=== PATIENT | male | born 1960 | race Caucasian/White ===

== ENCOUNTER 2017-01-04 12:42 | Inpatient (IN) | payer BC ==
--- NOTE | ~2017-01-04 | OP ---
Record Of Operation [facility] [address] [place]. [address] NAME: RODY DAVIS : 62 STATUS : DIS IN PAT#: [id number] AGE: 56 ADM/REG DATE : 01/04/17 MR#: [id number] REPORT SERV DATE: 01/07/17 DICTATED BY: ZHANG ALAS III DATE: 01/04/17 REPORT STATUS : Draft TRANSCRIBED BY: MODL DATE: 01/04/17 DATE OF PROCEDURE: 01/04/2017 PROCEDURE: Cystoscopy, bilateral retrograde, left double-J stent placement. PREOPERATIVE DIAGNOSES: Urinary tract infection, fever, and left ureteral calculus. POSTOPERATIVE DIAGNOSES: Urinary tract infection, fever, and left ureteral calculus. ANESTHESIA: General. SURGEON: Zhang Alas M.D. DESCRIPTION OF PROCEDURE: Following induction of adequate general anesthesia, the patient was placed in dorsal lithotomy position and prepped and draped in a sterile fashion. The urethra was examined and noted to be normal. The prostate was minimally obstructed. The bladder was entered. There were no tumors or stones. Left retrograde showed hydronephrosis approximately 4 to 5 cm from the bladder. There was a filling defect at that level. A wire was placed around it into the renal pelvis. A Vilas was placed up to the renal pelvis. It was opacified and the urine was obtained. It was dark yellow, not purulent. This was sent for culture, labeled left kidney urine culture. A 6-South African 26-cm Percuflex stent was placed with a loop in the upper pole and a loop in the bladder. On the right side, I saw no stones in the ureter. The system was opacified, was not obstructed, and urine was collected on this side for culture and labeled urine from right kidney. No catheter was placed. The patient tolerated the procedure well. OB/MODL Zhang Alas III, M.D. / [id number] CC: Giulia Stallworth III, M.D.
--- NOTE | ~2017-01-04 | DS ---
Discharge Summary [facility] [address] [place]. [address] NAME: RODY DAVIS : 62 STATUS : DIS IN PAT#: [id number] AGE: 56 ADM/REG DATE : 01/04/17 MR#: [id number] REPORT SERV DATE: 01/07/17 DICTATED BY: ZHANG ALAS III DATE: 01/06/17 REPORT STATUS : Draft TRANSCRIBED BY: JUAN CARLOS DATE: 01/06/17 ADMISSION DATE: 01/04/2017 DISCHARGE DATE: 01/06/2017 DISCHARGE DIAGNOSIS: Urinary tract infection with left ureteral calculus with probable pyelonephritis. PROCEDURE: Cystoscopy, retrograde left double-J stent. BRIEF HISTORY: The patient is a 56-year-old who has a long history of stones, multiple extractions, ESWL, and more recently had a right percutaneous procedure. He has a scarred right kidney from a fungal infection last year. Still has a 1.2 mm stone in the lower pole and a smaller stone above it. He had been having recurrent Pseudomonas infections that were sensitive to Cipro, but recurred rapidly. They were asymptomatic. I suspected that they may have originated in the right kidney. A renal nuclear scan showed 27% on the right side, 73 on the left with no obstruction. He began having left-sided flank pain and a CT was done showing a stone in the distal left ureter. He had had a fever of 102 on the day before admission. He was seen in the office and brought to [facility] for stenting. White count was 18,000. Creatinine was up slightly: Blood sugar was 130. He was hemodynamically stable. Past medical history can be found in the history and physical which is handwritten in the nursing notes. HOSPITAL COURSE: The patient was taken to the operating room and a left stent was placed. The urine was dark, but did not look purulent. His retrograde showed significant hydronephrosis. A stent was placed. Urine was sent for culture from the kidney. Right retrograde was done showing no hydronephrosis. Urine was sent for culture from that side as well. The urine culture was growing gram-negative rods, presumably Pseudomonas on the day of discharge. He had been afebrile for 36 hours. White count came down to 9000. He was eating and drinking, had no complaints whatsoever. I explained to him that I could let him go home, but I am going to give him gentamicin to cover him for 24 hours. We should hopefully have the cultures back tomorrow. I suspect Cipro did not clear the infection since there was obviously some infection, obviously some obstruction in the left kidney. It is somewhat surprising that a nuclear scan with Lasix was done that showed no hydronephrosis despite the fact the patient was having pain and likely had the ureteral stone at that time. The other issue with this is the fact that the Pseudomonas may have been in the left kidney alone and might not have originated from the right kidney. We had planned to do a second percutaneous procedure with the thinking that the right kidney probably held the residual infection. He will go home and will call the office. We will get the culture back and I may give him 1 more trial of Cipro or more likely place a PICC line and start him on a 5- to 7-day course of IV antibiotics. OB/MODL Zhang Discharge Summary [address] [place]. [address] NAME: RODY DAVIS : 62 STATUS : DIS IN PAT#: [id number] AGE: 56 ADM/REG DATE : 01/04/17 MR#: [id number] REPORT SERV DATE: 01/07/17 DICTATED BY: ZHANG ALAS III DATE: 01/06/17 REPORT STATUS : Draft TRANSCRIBED BY: JUAN CARLOS DATE: 01/06/17 Jin BERMAN M.D. / [id number] CC: Giulia Stallworth III, M.D.
[~2017-01-04 12:42] MED LIST: ASAB PO; CIP5 PO; DITRO5 PO; FLOMAX4 PO; FLUCON2 PO; HYDROCHLOROT12.5 MG PO; LEVEMFLXPN SC; NORCO1 TA2 PO; NORCO1 TAB PO; NOVOPEN SC; PCET PO; PERCOCET1 TA2 PO; PR25 PO; T PO; UROGESIC BLUE PO
[2017-01-04 13:47] LABS: BASOPHILS 0.3 %; BASOPHILS ABSOLUTE 0.05 10/3/uL (0.0-0.16); EOSINOPHILS 0.1 %; EOSINOPHILS ABSOLUTE 0.01 10/3/uL (0.0-0.53); HEMATOCRIT 47.5 % (40.0-51.0); HEMOGLOBIN 16.3 g/dL (13.6-17.8); IMMATURE GRANULOCYTES 0.4 %; IMMATURE GRANULOCYTES ABSOLUTE 0.07 10/3/uL (0.0-0.11); LYMPHOCYTES 5.5 %; MEAN CORPUS HGB CONC 34.3 g/dL (32.0-36.0); MEAN CORPUSCULAR HEMOGLOB 33.7 pg (26.0-34.0); MEAN CORPUSCULAR VOLUME 98.3 fL (80-100); MEAN PLATELET VOLUME 10.8 fL (9.2-13.0); MONOCYTES 5.5 %; NEUTROPHILS 88.2 %; PLATELET COUNT 198 10/3/uL (150-400); RBC DISTRIBUTION WIDTH 13.4 % (12.0-16.0); RED CELL COUNT 4.83 10/6/uL (4.7-6.1)
[2017-01-04 13:48] LABS: MANUAL DIFF NO %; WHITE BLOOD CELLS 16.2 10/3/uL (4.5-10.5)
[2017-01-04 14:02] LABS: A/G RATIO 0.8 (0.7-1.9); ALBUMIN 3.7 G/DL (3.5-5.0); ALKALINE PHOSPHATASE 85 U/L (45-117); BUN (BLOOD UREA NITROGEN) 18 MG/DL (6-23); CALCIUM, SERUM 9.1 MG/DL (8.5-10.4); CHLORIDE, SERUM 102 MMOL/L (96-112); CO2 (CARBON DIOXIDE) 25 MMOL/L (24-34); CREATININE 0.99 MG/DL (0.70-1.30); GFR AFRICAN AMERICAN 99 ML/MIN (>=60); GFR NON AFRICAN AMERICAN 85 ML/MIN (>=60); GLOBULIN 4.7 G/DL (2.5-4.1); GLUCOSE, SERUM 107 MG/DL (60-99); SGOT(AST) 10 U/L (5-40); SGPT(ALT) 18 U/L (5-65); SODIUM, SERUM 138 MMOL/L (135-148); TOTAL BILIRUBIN 1.4 MG/DL (0-1.2); TOTAL PROTEIN 8.4 G/DL (6.0-8.5)
[2017-01-05 07:22] LABS: BASOPHILS 0.3 %; BASOPHILS ABSOLUTE 0.03 10/3/uL (0.0-0.16); EOSINOPHILS 0.6 %; EOSINOPHILS ABSOLUTE 0.05 10/3/uL (0.0-0.53); HEMATOCRIT 43.5 % (40.0-51.0); HEMOGLOBIN 14.4 g/dL (13.6-17.8); IMMATURE GRANULOCYTES 0.4 %; IMMATURE GRANULOCYTES ABSOLUTE 0.04 10/3/uL (0.0-0.11); LYMPHOCYTES 12.7 %; LYMPHOCYTES ABSOLUTE 1.15 10/3/uL (0.67-4.30); MEAN CORPUS HGB CONC 33.1 g/dL (32.0-36.0); MEAN CORPUSCULAR VOLUME 99.5 fL (80-100); MEAN PLATELET VOLUME 10.9 fL (9.2-13.0); MONOCYTES 10.6 %; MONOCYTES ABSOLUTE 0.96 10/3/uL (0.21-1.20); NEUTROPHILS 75.4 %; NEUTROPHILS ABSOLUTE 6.79 10/3/uL (2.02-8.40); PLATELET COUNT 170 10/3/uL (150-400); RBC DISTRIBUTION WIDTH 13.5 % (12.0-16.0); RED CELL COUNT 4.37 10/6/uL (4.7-6.1)
[2017-01-05 07:25] LABS: MANUAL DIFF NO %
[2017-01-05 07:28] LABS: BUN (BLOOD UREA NITROGEN) 20 MG/DL (6-23); CALCIUM, SERUM 8.3 MG/DL (8.5-10.4); CHLORIDE, SERUM 102 MMOL/L (96-112); CO2 (CARBON DIOXIDE) 28 MMOL/L (24-34); CREATININE 1.05 MG/DL (0.70-1.30); GFR AFRICAN AMERICAN 92 ML/MIN (>=60); GFR NON AFRICAN AMERICAN 80 ML/MIN (>=60); POTASSIUM, SERUM 3.9 MMOL/L (3.5-5.3); SODIUM, SERUM 139 MMOL/L (135-148)
[2017-01-05 07:29] LABS: GLUCOSE, SERUM 130 MG/DL (60-99)
[2017-01-06] MEDS ORDERED: PR25 PO (14:42)
[2017-04-19] MEDS ORDERED: MEDROLPAK4 PO (14:29)
[2017-04-19] MEDS ORDERED: CIP5 PO (14:31)
[2017-06-24] MEDS ORDERED: MOBIC15 MG PO (17:16)
[2017-06-27] MEDS ORDERED: ZOSYN375 IV (16:27)
== END 2017-01-06 15:29 | disposition home or self-care (01) | DRG 690 ==
LOC: SDC/OF 12:42 → PACU 16:05 → 5SO 17:12
PROVIDERS: Urology
PROC: 0T778DZ Dilation of Left Ureter with Intraluminal Device, Via Natural or Artificial Opening Endoscopic (ICD-10-PCS; 2017-01-04)
PROC: BT1F1ZZ Fluoroscopy of Left Kidney, Ureter and Bladder using Low Osmolar Contrast (ICD-10-PCS; principal; 2017-01-04 14:45)
DX: N39.0 Urinary tract infection, site not specified (principal); N20.1 Calculus of ureter; I10 Essential (primary) hypertension; F17.210 Nicotine dependence, cigarettes, uncomplicated; J44.9 Chronic obstructive pulmonary disease, unspecified; E11.9 Type 2 diabetes mellitus without complications; Z79.899 Other long term (current) drug therapy; Z79.4 Long term (current) use of insulin
CPT/HCPCS: 74420; 80048; 80053; 82962; 85025; 87040; 87077; 87086; 87186; 93005; A9270-GY; C1758; C1769; C2617; J0692; J1580; J2250; J2270; J2405; J3010; Q9967

== ENCOUNTER 2017-01-25 11:50 | Inpatient (IN) | payer BC ==
[2017-01-21 13:15] LABS: BASOPHILS 1.1 %; EOSINOPHILS 2.7 %; EOSINOPHILS ABSOLUTE 0.24 10/3/uL (0.0-0.53); HEMATOCRIT 44.3 % (40.0-51.0); HEMOGLOBIN 14.9 g/dL (13.6-17.8); IMMATURE GRANULOCYTES 0.4 %; IMMATURE GRANULOCYTES ABSOLUTE 0.04 10/3/uL (0.0-0.11); LYMPHOCYTES 39.9 %; LYMPHOCYTES ABSOLUTE 3.55 10/3/uL (0.67-4.30); MEAN CORPUS HGB CONC 33.6 g/dL (32.0-36.0); MEAN PLATELET VOLUME 11.1 fL (9.2-13.0); MONOCYTES 7.3 %; MONOCYTES ABSOLUTE 0.65 10/3/uL (0.21-1.20); NEUTROPHILS 48.6 %; NEUTROPHILS ABSOLUTE 4.32 10/3/uL (2.02-8.40); PLATELET COUNT 225 10/3/uL (150-400); RBC DISTRIBUTION WIDTH 13.6 % (12.0-16.0); RED CELL COUNT 4.52 10/6/uL (4.7-6.1); WHITE BLOOD CELLS 8.9 10/3/uL (4.5-10.5)
[2017-01-21 13:20] LABS: MANUAL DIFF NO %
[2017-01-21 13:26] LABS: BUN (BLOOD UREA NITROGEN) 23 MG/DL (6-23); CALCIUM, SERUM 9.1 MG/DL (8.5-10.4); CHLORIDE, SERUM 106 MMOL/L (96-112); CO2 (CARBON DIOXIDE) 27 MMOL/L (24-34); CREATININE 1.21 MG/DL (0.70-1.30); GFR AFRICAN AMERICAN 78 ML/MIN (>=60); GFR NON AFRICAN AMERICAN 67 ML/MIN (>=60); POTASSIUM, SERUM 4.3 MMOL/L (3.5-5.3); SODIUM, SERUM 142 MMOL/L (135-148)
[2017-01-21 13:27] LABS: GLUCOSE, SERUM 164 MG/DL (60-99)
--- NOTE | ~2017-01-25 | HP ---
History And Physical [place] [id number] [facility] [place]. [address] NAME: RODY DAVIS : 62 STATUS : ADM IN [facility]#: [id number] AGE: 56 ADM/REG DATE : 01/25/17 MR#: [id number] REPORT SERV DATE: 01/25/17 DICTATED BY: ZHANG ALAS III DATE: 01/25/17 REPORT STATUS : Draft TRANSCRIBED BY: MODKemal DATE: 01/25/17 DATE OF ADMISSION: 01/25/2017 The patient is a 56-year-old white male with a long history of stones, multiple extractions, etc. He recently was found to have a left ureteral stone with pyelonephritis. He was stented approximately three weeks ago with Pseudomonas after he was initially treated in the hospital. A PICC line was placed and gentamicin was given for approximately 8 days. Culture of 2 days later which was at the end of last week revealed residual Pseudomonas with tobramycin being the more sensitive drug. He was started on tobramycin at that time 4 days ago. He has been afebrile. His urine continues to look inflammatory. He was admitted for cysto left retrograde and stone removal. He also has a history of pyelonephritis. Last summer he came in with a new diagnosis of diabetes. He was extremely hypoglycemic. He had stones in the right kidney which ultimately grew fungus and he required prolonged treatment for fungal infections. His right kidney still has approximately a 13 mm stone and a 6 mm stone. We initially grew the Pseudomonas approximately 6 weeks ago. We did not know about the left ureteral calculus. He was tried on several rounds of Cipro which failed. When he began having flank pain, we did a CT and found the stone. Initially I was concerned that the Pseudomonas might be in a reservoir in the right kidney and we had discussed a percutaneous procedure to remove the stones. At that time before the stone was found, we were still that this was in the right kidney that harbored the infection. The plan on admission is to remove the left stone and proceed with percutaneous procedure after the left side is clear. PAST MEDICAL HISTORY: Includes renal calculi. Diabetes. He also had hypertension, has had PVCs. SURGICAL HISTORY: His surgical history includes percutaneous procedures bilaterally. His surgeries have been mainly urologic. SOCIAL HISTORY: He does not smoke. Rarely drinks. REVIEW OF SYSTEMS: Review of systems revealed no chest pain or shortness of breath. PHYSICAL EXAMINATION: GENERAL: On exam in the office, he is alert and oriented. Mood and affect are normal. HEENT: Unremarkable. NECK: Supple. LUNGS: Clear. HEART: He had a regular rate and rhythm. : There was no flank tenderness. ABDOMEN: Abdominal exam was benign. GENITALIA: External genitalia had been examined previously and unremarkable. IMPRESSION: Impression is that of a left ureteral calculus with stenting. He is miserable with the stent and I plan to remove the stone, leave the stent for a day or two to let any History And Physical [address] [place]. [address] NAME: RODY DAVIS : 62 STATUS : ADM IN [facility]#: [id number] AGE: 56 ADM/REG DATE : 01/25/17 MR#: [id number] REPORT SERV DATE: 01/25/17 DICTATED BY: ZHANG ALAS III DATE: 01/25/17 REPORT STATUS : Draft TRANSCRIBED BY: MODKemal DATE: 01/25/17 edema resolve and if this clears the infection, we will consider a percutaneous procedure in the right kidney to remove the residual stones. Risks were discussed with the patient, bleeding, infection, need for additional procedures. We will proceed with the dose of tobramycin today and with removal of the stent, hopefully the infection will clear. OB/MODL Zhang Alas III, M.D. / [id number] CC: Giulia Stallworth III, M.D.
--- NOTE | ~2017-01-25 | DS ---
Discharge Summary [facility] [address] [place]. [address] NAME: RODY DAVIS : 62 STATUS : DIS IN PAT#: [id number] AGE: 56 ADM/REG DATE : 01/25/17 MR#: [id number] REPORT SERV DATE: 02/07/17 DICTATED BY: ZHANG ABDI III DATE: 02/06/17 REPORT STATUS : Draft TRANSCRIBED BY: JUAN CARLOS DATE: 02/06/17 Data Collection from hospitalization DISCHARGE DIAGNOSES: 1. Possible pyelonephrosis. 2. Diabetes. 3. Hypertension. 4. Premature ventricular contractions. 5. History of renal calculi. CONSULTATIONS: 1. Jasen Arriaga M.D. 2. Ganga Brown M.D. PROCEDURES PERFORMED: 1. Cystoscopy, left retrograde, left stone fragmentation with partial removal and ureterorenoscopy on 01/25/2017. 2. CT scan of the abdomen and pelvis without contrast on 01/27/2017. MEDICATIONS: Tylenol 325 mg as needed, hydrochlorothiazide 12.5 mg daily, [place] 10/325 one tablet every four hours as needed, NovoLog FlexPen before meals and at bedtime, Levemir FlexPen 8 units subcutaneously at bedtime, Ditropan 5 mg three times a day as needed, and Phenergan 25 mg every six hours as needed. CONDITION AT DISCHARGE: Stable. DISPOSITION: The patient was discharged home on a low-cholesterol, 1800-calorie diabetic diet with no concentrated carbohydrates and activities as instructed. He would follow up with me on 02/12/[address] Jasen Arriaga on 02/11/2017. HOSPITAL COURSE: This is a 56-year-old man who has had a left ureteral calculus stented approximately three weeks prior to this admission. This had grown Pseudomonas. He had been treated with IV antibiotics in the hospital and a PICC line was inserted for another seven days of gentamicin. A culture was done 48 hours later and still grew Pseudomonas only. Tobramycin was the more sensitive drug, so approximately four days prior to this admission, he was started on a dose of tobramycin. He had been afebrile. His urine continued to look inflammatory. He has been admitted for cysto, left retrograde and stone removal. He also has a history of pyelonephritis. Last summer, he came in with a new diagnosis of diabetes. He was extremely hypoglycemic. He had stones in the right kidney, which ultimately grew fungus and he required prolonged treatment for fungal infections. His right kidney still had an approximate 13-mm stone and a 6-mm stone. We initially grew the Pseudomonas approximately six weeks ago. We did not know about the left ureteral calculus. He was tried on several rounds of Cipro, which failed. When he began having flank pain, a CT scan was performed and the stone was found. Initially, there was concern that the Pseudomonas might be in a reservoir in the right kidney and we discussed a percutaneous procedure to remove with the stone. The plan at this time was to remove the left stone and proceed with percutaneous procedure after the left side was clear. He was admitted to the hospital at this time for further evaluation and treatment. Discharge Summary [address] [place]. [address] NAME: RODY DAVIS : 62 STATUS : DIS IN PAT#: [id number] AGE: 56 ADM/REG DATE : 01/25/17 MR#: [id number] REPORT SERV DATE: 02/07/17 DICTATED BY: ZHANG ABDI III DATE: 02/06/17 REPORT STATUS : Draft TRANSCRIBED BY: JUAN CARLOS DATE: 02/06/17 Upon admission, he was taken to the operating room where he underwent the above-mentioned procedure. He tolerated this well, and there were no complications. The patient's said that his pulse had been as low as 30 beats per minute at home. She said he had had no chest pain. He has a history of PVCs in the past. He was seen by Dr. Jasen Arriaga regarding trigeminy postoperatively. The patient has a long history of an abnormal heartbeat. He had been worked up previously at [facility] with a stress test and was told that it was best to follow, and if he had any pain or passing-out episodes, he was to call. He was moderately active. EKG showed no acute changes. Trigeminy was noted. Potassium, magnesium, and EKG would be checked the following morning. He scheduled an appointment for the patient to see him on 02/11/2017. On postop day #1, he was seen by Dr. Ganga Brown for antibiotic recommendations. White blood cell count was 19.8. He had developed some fevers and chills that afternoon. His last dose of antibiotic had been the tobramycin on the afternoon of 01/24/2017. He had some very minimal left-sided discomfort, but no significant flank pain. Creatinine level was 1.08. He appeared to have residual Pseudomonas urinary tract infection and had developed mild septic response to the procedure from the day previously. Zosyn was going to be started. Repeat white blood cell count would be obtained. A preliminary urine culture would be obtained. He had no chest pain, shortness of breath, or palpitations. EKG revealed sinus rhythm. On 01/27/2017, he had a T-max of 102.4 during the night. He said he felt lousy. He was voiding okay. White blood cell count was 21.6 with a normal differential. Zosyn was continued. Creatinine level was 1.33. Stent appeared to be in the correct position. CT scan of the abdomen and pelvis without contrast had been performed. Blood and urine cultures were pending. That afternoon, he spiked another fever. KUB had shown good position of the stent. CT scan of the abdomen and pelvis had been performed. The upper pole was not dilated. The lower pole was full that was similar in appearance to September of 2016 and November of 2016. The kidney was diffusely edematous with mild perinephric stranding. The next day, his T-max was 101. White count was 18,000. He was afebrile. Chest x-ray was negative. Zosyn was continued. Vancomycin was stopped. Discharge planning was performed. On 01/29/2017, he said he felt great. His lungs were clear. White count was 10.5. Blood cultures were negative. Discharge instructions were given. Due to his improved and stable condition, he was discharged home with the above-stated instructions. Information collected by: Jennifer Arias I submit the above information as my discharge summary. LALO/MODL Zhang Abdi III, M.D. / [id number] CC: Giulia Stallworth III, M.D. Gordon Graham, M.D. [address] [place] [address] NAME: RODY DAVIS : 62 STATUS : DIS IN PAT#: [id number] AGE: 56 ADM/REG DATE : 01/25/17 MR#: [id number] REPORT SERV DATE: 02/07/17 DICTATED BY: ZHANG ABDI III DATE: 02/06/17 REPORT STATUS : Draft TRANSCRIBED BY: MODL DATE: 02/06/17 Ganga Brown M.D.
--- NOTE | ~2017-01-25 | CN ---
Consultation Report [facility] [address] [place]. [address] NAME: JADEN DAVIS : 62 STATUS : ADM IN [facility]#: [id number] AGE: 56 ADM/REG DATE : 01/25/17 MR#: [id number] REPORT SERV DATE: 01/25/17 DICTATED BY: JASEN ARRIAGA DATE: 01/25/17 REPORT STATUS : Draft TRANSCRIBED BY: MODL DATE: 01/25/17 CONSULTATION DATE OF CONSULTATION: REASON FOR CONSULTATION: Jaden Davis is a 56-year-old male, who is referred for trigeminy postoperatively. CVD PHYSICIAN: Jasen Arriaga M.D. HISTORY OF PRESENT ILLNESS: Mr. Jaden Davis has a long history of abnormal heartbeat. He had been worked up previously at [facility] with stress test and was told that it was best to follow, and if he had any pain or passing-out episodes, to call. REVIEW OF SYSTEMS: Negative for syncope, presyncope, palpitations, CAZARES, PND, lower extremity edema, angina. Rest is negative or noncontributory. SOCIAL HISTORY: He is moderately active. He does not smoke or drink. FAMILY HISTORY: Negative for early heart disease. PAST MEDICAL HISTORY: Really unremarkable. MEDICATIONS: He takes no medication on a regular basis. PHYSICAL EXAMINATION: VITAL SIGNS: Blood pressure is 110/70, pulse is 82. GENERAL: He currently is resting comfortably. Nutritional status appears adequate. EYES: PERRLA. LUNGS: No labored use of accessory muscles. Without rales or wheezes. COR: PMI is not displaced. No thrills or heaves. NL S1 and S2. No S3, murmur, click, or rub. PULSES: Carotids without bruits. ABD: +BS, nontender. EXT: No cyanosis, clubbing, or edema. SKIN: No petechiae. NEURO: Alert and oriented. Does not appear anxious or depressed. LABORATORY EVALUATION: EKG shows no acute changes. Trigeminy is noted. ASSESSMENT: We will check potassium, magnesium, and an EKG in the morning. I have an appointment for him to see me on 02/11 at 2:15. Consultation Report [facility] [address] [facility] [place] [address] NAME: JADEN DAVSI : 62 STATUS : ADM IN PAT#: [id number] AGE: 56 ADM/REG DATE : 01/25/17 MR#: [id number] REPORT SERV DATE: 01/25/17 DICTATED BY: JASEN ARRIAGA DATE: 01/25/17 REPORT STATUS : Draft TRANSCRIBED BY: JUAN CARLOS DATE: 01/25/17 GG/JUAN CARLOS Jasen Arriaga M.D. / [id number] CC: Giulia Stallworth III, M.D.
--- NOTE | ~2017-01-25 | OP ---
Record Of Operation [facility] [address] [place]. [address] NAME: RODY DAVIS : 62 STATUS : ADM IN [facility]#: [id number] AGE: 56 ADM/REG DATE : 01/25/17 MR#: [id number] REPORT SERV DATE: 01/25/17 DICTATED BY: ZHANG ALAS III DATE: 01/25/17 REPORT STATUS : Draft TRANSCRIBED BY: MODL DATE: 01/25/17 DATE OF PROCEDURE: 01/25/2017 PROCEDURE: Cystoscopy, left retrograde, left stone fragmentation with partial removal and ureterorenoscopy. PREOPERATIVE DIAGNOSIS: Left ureteral calculus/impacted. POSTOPERATIVE DIAGNOSIS: Possible pyelonephrosis. INDICATION: The patient has had a left ureteral calculus, stented approximately three weeks ago, grew a Pseudomonas. He was treated with IV antibiotics in the hospital and a PICC line for another 7 days of gentamicin. A culture was done 48 hours later and still grew Pseudomonas only, tobramycin was the more sensitive drug, so approximately 4 days ago, he was started on a dose of tobramycin. He has had no fever, has had pain from the stent. PROCEDURE IN DETAIL: Following induction of adequate general anesthesia, the patient was placed in the dorsal lithotomy position, prepped and draped in a sterile fashion. The urethra was entered and noted to be normal. Prostate was not obstructed. The bladder was full of debris with some clot. The stent was grasped and had a filmy whitish covering suggestive of yeast although none grew on the culture last week. The stent was removed. The scope was passed up to approximately 6 cm above the bladder and the stone was identified and impacted. The ureter was widely dilated except at this point. I fragmented this with the laser and fairly small fragments, however did require irrigation to maintain visualization and the number of the fragments migrated proximally. The rigid scope was passed to the level of the vessels and possibly into L5. I could not see any definite stones but there was a good bit of debris coming down from the kidney. A ureteral access sheath was placed. The ureteroscope was passed into the upper ureter which did have a fair amount of debris and some old clot. On entering the kidney, the kidney was dilated to some extent from the irrigation; however, there was a lot of floating debris which was irrigated out with a syringe. I did 1 quick look at the 2 major caliceal systems in and could not see any sizable stone. There were a number of small fragments. At this point, I elected to place a stent since further distention of the kidney could cause bacteremia. On the way out, the ureter was intact. Several small fragments had been removed but I have analyzed a number of his stones and we did not send these for analysis. A 7-Fijian stent was placed with a loop in the kidney and a loop in the bladder. The patient tolerated the procedure well. OB/MODL Zhang Alas III, M.D. / [id number] Record Of [address] [place]. [address] NAME: RODY DAVIS : 62 STATUS : ADM IN [facility]#: [id number] AGE: 56 ADM/REG DATE : 01/25/17 MR#: [id number] REPORT SERV DATE: 01/25/17 DICTATED BY: ZHANG ALAS III DATE: 01/25/17 REPORT STATUS : Draft TRANSCRIBED BY: JUAN CARLOS DATE: 01/25/17 CC: Giulia Stallworth III, M.D.
--- NOTE | ~2017-01-25 | CN ---
Consultation Report [facility] [address] [place]. [address] NAME: RODY DAVIS : 62 STATUS : ADM IN [facility]#: [id number] AGE: 56 ADM/REG DATE : 01/25/17 MR#: [id number] REPORT SERV DATE: 01/26/17 DICTATED BY: YE BROWN DATE: 01/26/17 REPORT STATUS : Draft TRANSCRIBED BY: MODL DATE: 01/26/17 INFECTIOUS DISEASE CONSULTATION DATE OF CONSULTATION: 01/26/2017 REASON FOR CONSULTATION: Antibiotic recommendations. HISTORY OF PRESENT ILLNESS: This is a 56-year-old man known to me from inpatient consultation last year, who has a long history of kidney stones and urinary tract infections. When I saw him in 03/2016, he had Shayna tropicalis urinary tract infection. He has been followed by Dr. Abdi. Most recently, he was in the hospital from 01/04 through 01/06 with a Pseudomonas urinary tract infection with left ureteral calculus and probable pyelonephritis and underwent placement of a left double-J stent and was discharged on gentamicin, which he received once daily in the infusion center through 01/15. A followup culture on 01/18 again grew Pseudomonas, which now showed intermediate sensitivity to gentamicin and the patient was therefore started on tobramycin on 01/22, again given in the infusion center. He was then admitted to the hospital on 01/25 and underwent cystoscopy, left retrograde pyelogram, left stone fragmentation with partial removal, and ureteral endoscopy with findings of an impacted left ureteral calculus and possible pyelonephrosis. That operative note is reviewed in detail. Today, he has a white blood cell count of 19.8, and has developed some fevers and chills this afternoon. His last dose of antibiotics was the tobramycin, I believe, on the afternoon of 01/24. He has some very minimal left-sided discomfort, but no significant flank pain. He has had a temperature this afternoon up above 99. PAST MEDICAL HISTORY: As outlined above and on my previous consultation, otherwise notable for cholecystectomy and right knee surgery and diabetes. ALLERGIES: NO KNOWN DRUG ALLERGIES. PRESENT MEDICATIONS: Include hydrochlorothiazide, insulin, Dilaudid [employer]. SOCIAL HISTORY: Nonsmoker, nondrinker. FAMILY HISTORY: Noncontributory. REVIEW OF SYSTEMS: Otherwise negative. PHYSICAL EXAMINATION: VITAL SIGNS: Patient weighs 99 kg. He is afebrile. Blood pressure 115/58, pulse 81, respiratory rate 14. GENERAL: He is alert, in no acute distress. HEAD AND NECK: Unremarkable. Consultation Report [facility] [address] [place]. [address] NAME: RODY DAVIS : 62 STATUS : ADM IN [facility]#: [id number] AGE: 56 ADM/REG DATE : 01/25/17 MR#: [id number] REPORT SERV DATE: 01/26/17 DICTATED BY: YE BROWN DATE: 01/26/17 REPORT STATUS : Draft TRANSCRIBED BY: MODL DATE: 01/26/17 LUNGS: Clear to auscultation. CARDIAC: Regular rate and rhythm without murmur, gallop, or rub. ABDOMEN: Soft and nontender except for some vague discomfort to palpation in the left lateral abdomen. EXTREMITIES: Show a PICC line placed about two weeks ago in the right upper extremity. No significant edema. SKIN: Without rash. LABORATORY STUDIES: White blood cell count today 19.8, hemoglobin 14.3, platelets 172. Creatinine 1.08. His white blood cell count on 01/21 was 8.9. Microbiology results: Urinalysis yesterday showed large leukocyte esterase, greater than 192 white blood cells, greater than 182 red blood cells. Urine culture from today is pending. 01/18, urine culture grew 100,000 colonies of Pseudomonas, sensitive to Zosyn, aztreonam, and tobramycin. IMPRESSION: The patient appears to have residual Pseudomonas urinary tract infection and has developed mild septic response to yesterday's procedure. PLAN: 1. We will begin Zosyn. 2. Repeat white blood cell count in the morning. 3. We will check preliminary urine culture results in the morning and reassess further antibiotic plans at that time. /JUAN CARLOS Ye Brown M.D. / [id number] CC: Giulia Stallworth III, M.D.
[2017-01-25 16:18] LABS: POTASSIUM, SERUM 5.1 MMOL/L (3.5-5.3)
[2017-01-26 05:11] LABS: BASOPHILS 0.4 %; BASOPHILS ABSOLUTE 0.07 10/3/uL (0.0-0.16); EOSINOPHILS 0.1 %; EOSINOPHILS ABSOLUTE 0.01 10/3/uL (0.0-0.53); HEMATOCRIT 42.4 % (40.0-51.0); HEMOGLOBIN 14.3 g/dL (13.6-17.8); IMMATURE GRANULOCYTES 0.6 %; IMMATURE GRANULOCYTES ABSOLUTE 0.11 10/3/uL (0.0-0.11); LYMPHOCYTES 7.5 %; LYMPHOCYTES ABSOLUTE 1.48 10/3/uL (0.67-4.30); MEAN CORPUS HGB CONC 33.7 g/dL (32.0-36.0); MEAN CORPUSCULAR HEMOGLOB 32.9 pg (26.0-34.0); MEAN CORPUSCULAR VOLUME 97.7 fL (80-100); MEAN PLATELET VOLUME 11.9 fL (9.2-13.0); MONOCYTES 6.1 %; MONOCYTES ABSOLUTE 1.22 10/3/uL (0.21-1.20); NEUTROPHILS 85.3 %; NEUTROPHILS ABSOLUTE 16.95 10/3/uL (2.02-8.40); PLATELET COUNT 172 10/3/uL (150-400); RBC DISTRIBUTION WIDTH 13.7 % (12.0-16.0); RED CELL COUNT 4.34 10/6/uL (4.7-6.1)
[2017-01-26 05:13] LABS: MANUAL DIFF NO %; WHITE BLOOD CELLS 19.8 10/3/uL (4.5-10.5)
[2017-01-26 05:16] LABS: BUN (BLOOD UREA NITROGEN) 20 MG/DL (6-23); CHLORIDE, SERUM 104 MMOL/L (96-112); CREATININE 1.08 MG/DL (0.70-1.30); GFR AFRICAN AMERICAN 89 ML/MIN (>=60); GFR NON AFRICAN AMERICAN 77 ML/MIN (>=60); POTASSIUM, SERUM 4.8 MMOL/L (3.5-5.3); SODIUM, SERUM 138 MMOL/L (135-148)
[2017-01-26 05:22] LABS: CALCIUM, SERUM 8.1 MG/DL (8.5-10.4); CO2 (CARBON DIOXIDE) 22 MMOL/L (24-34); GLUCOSE, SERUM 115 MG/DL (60-99)
[2017-01-26 10:27] LABS: ASCORBIC ACID (UR NOT ORDER) NEG (NEG); BILIRUBIN, URINE NEGATIVE (NEG); KETONE, URINE NEGATIVE (NEG); LEUKOCYTE ESTERASE(NOT OR LARGE (NEG)
[2017-01-26 10:29] LABS: WBC (NOT ORDERED) (RFLEX) > 182 (0-5)
[2017-01-27 06:26] LABS: BASOPHILS 0.1 %; BASOPHILS ABSOLUTE 0.02 10/3/uL (0.0-0.16); EOSINOPHILS 0 %; HEMATOCRIT 40.5 % (40.0-51.0); HEMOGLOBIN 13.8 g/dL (13.6-17.8); IMMATURE GRANULOCYTES 0.3 %; IMMATURE GRANULOCYTES ABSOLUTE 0.06 10/3/uL (0.0-0.11); LYMPHOCYTES 7.1 %; LYMPHOCYTES ABSOLUTE 1.53 10/3/uL (0.67-4.30); MEAN CORPUS HGB CONC 34.1 g/dL (32.0-36.0); MEAN CORPUSCULAR HEMOGLOB 32.9 pg (26.0-34.0); MEAN CORPUSCULAR VOLUME 96.4 fL (80-100); MEAN PLATELET VOLUME 11.4 fL (9.2-13.0); MONOCYTES 7.3 %; MONOCYTES ABSOLUTE 1.57 10/3/uL (0.21-1.20); NEUTROPHILS 85.2 %; PLATELET COUNT 154 10/3/uL (150-400); WHITE BLOOD CELLS 21.6 10/3/uL (4.5-10.5)
[2017-01-27 06:29] LABS: MANUAL DIFF NO %
[2017-01-27 06:39] LABS: A/G RATIO 0.8 (0.7-1.9); ALBUMIN 3.2 G/DL (3.5-5.0); ALKALINE PHOSPHATASE 75 U/L (45-117); BUN (BLOOD UREA NITROGEN) 17 MG/DL (6-23); CALCIUM, SERUM 8.4 MG/DL (8.5-10.4); CHLORIDE, SERUM 102 MMOL/L (96-112); CO2 (CARBON DIOXIDE) 24 MMOL/L (24-34); CREATININE 1.33 MG/DL (0.70-1.30); GFR AFRICAN AMERICAN 69 ML/MIN (>=60); GFR NON AFRICAN AMERICAN 60 ML/MIN (>=60); GLOBULIN 3.9 G/DL (2.5-4.1); GLUCOSE, SERUM 135 MG/DL (60-99); POTASSIUM, SERUM 3.5 MMOL/L (3.5-5.3); SGOT(AST) 19 U/L (5-40); SGPT(ALT) 25 U/L (5-65); SODIUM, SERUM 136 MMOL/L (135-148); TOTAL BILIRUBIN 1.3 MG/DL (0-1.2); TOTAL PROTEIN 7.1 G/DL (6.0-8.5)
[2017-01-28 06:34] LABS: BASOPHILS 0.1 %; BASOPHILS ABSOLUTE 0.02 10/3/uL (0.0-0.16); EOSINOPHILS 0 %; HEMATOCRIT 37.6 % (40.0-51.0); HEMOGLOBIN 12.9 g/dL (13.6-17.8); IMMATURE GRANULOCYTES 0.3 %; IMMATURE GRANULOCYTES ABSOLUTE 0.05 10/3/uL (0.0-0.11); LYMPHOCYTES 11.7 %; MEAN CORPUS HGB CONC 34.3 g/dL (32.0-36.0); MEAN CORPUSCULAR HEMOGLOB 33.5 pg (26.0-34.0); MEAN CORPUSCULAR VOLUME 97.7 fL (80-100); MONOCYTES 12.4 %; MONOCYTES ABSOLUTE 2.22 10/3/uL (0.21-1.20); NEUTROPHILS 75.5 %; NEUTROPHILS ABSOLUTE 13.58 10/3/uL (2.02-8.40); PLATELET COUNT 145 10/3/uL (150-400); RBC DISTRIBUTION WIDTH 13.9 % (12.0-16.0); RED CELL COUNT 3.85 10/6/uL (4.7-6.1)
[2017-01-28 06:36] LABS: MANUAL DIFF NO %
[2017-01-28 06:43] LABS: BUN (BLOOD UREA NITROGEN) 19 MG/DL (6-23); CALCIUM, SERUM 8.1 MG/DL (8.5-10.4); CHLORIDE, SERUM 103 MMOL/L (96-112); CO2 (CARBON DIOXIDE) 22 MMOL/L (24-34); CREATININE 1.03 MG/DL (0.70-1.30); GFR AFRICAN AMERICAN 94 ML/MIN (>=60); GFR NON AFRICAN AMERICAN 81 ML/MIN (>=60); GLUCOSE, SERUM 119 MG/DL (60-99); POTASSIUM, SERUM 3.6 MMOL/L (3.5-5.3); SODIUM, SERUM 135 MMOL/L (135-148)
[2017-01-29 04:58] LABS: BASOPHILS 0.1 %; BASOPHILS ABSOLUTE 0.01 10/3/uL (0.0-0.16); EOSINOPHILS 0.4 %; EOSINOPHILS ABSOLUTE 0.04 10/3/uL (0.0-0.53); HEMATOCRIT 34.4 % (40.0-51.0); HEMOGLOBIN 11.7 g/dL (13.6-17.8); IMMATURE GRANULOCYTES 0.3 %; IMMATURE GRANULOCYTES ABSOLUTE 0.03 10/3/uL (0.0-0.11); LYMPHOCYTES 17.9 %; LYMPHOCYTES ABSOLUTE 1.87 10/3/uL (0.67-4.30); MEAN CORPUSCULAR HEMOGLOB 32.5 pg (26.0-34.0); MEAN CORPUSCULAR VOLUME 95.6 fL (80-100); MEAN PLATELET VOLUME 10.8 fL (9.2-13.0); MONOCYTES 13.4 %; NEUTROPHILS 67.9 %; NEUTROPHILS ABSOLUTE 7.11 10/3/uL (2.02-8.40); PLATELET COUNT 159 10/3/uL (150-400); RBC DISTRIBUTION WIDTH 13.8 % (12.0-16.0)
[2017-01-29 05:00] LABS: MANUAL DIFF NO %; WHITE BLOOD CELLS 10.5 10/3/uL (4.5-10.5)
[2017-01-29 05:11] LABS: BUN (BLOOD UREA NITROGEN) 22 MG/DL (6-23); CALCIUM, SERUM 7.9 MG/DL (8.5-10.4); CHLORIDE, SERUM 106 MMOL/L (96-112); CO2 (CARBON DIOXIDE) 19 MMOL/L (24-34); CREATININE 0.85 MG/DL (0.70-1.30); GFR AFRICAN AMERICAN 114 ML/MIN (>=60); GFR NON AFRICAN AMERICAN 98 ML/MIN (>=60); POTASSIUM, SERUM 3.9 MMOL/L (3.5-5.3); SODIUM, SERUM 138 MMOL/L (135-148)
[2017-01-29 05:17] LABS: GLUCOSE, SERUM 155 MG/DL (60-99)
[2017-04-19] MEDS ORDERED: MEDROLPAK4 PO (14:29)
[2017-04-19] MEDS ORDERED: CIP5 PO (14:31)
[2017-06-24] MEDS ORDERED: MOBIC15 MG PO (17:16)
[2017-06-27] MEDS ORDERED: ZOSYN375 IV (16:27)
== END 2017-01-29 17:38 | disposition home or self-care (01) | DRG 669 ==
LOC: SDC 11:50 → 4SO 16:00
PROVIDERS: Internal Medicine Cardiovascular Disease; Internal Medicine Infectious Disease; Urology
PROC: 0T778DZ Dilation of Left Ureter with Intraluminal Device, Via Natural or Artificial Opening Endoscopic (ICD-10-PCS; principal; 2017-01-25 13:15)
PROC: 0TP98DZ Removal of Intraluminal Device from Ureter, Via Natural or Artificial Opening Endoscopic (ICD-10-PCS; principal; 2017-01-25 13:15)
PROC: 0TC78ZZ Extirpation of Matter from Left Ureter, Via Natural or Artificial Opening Endoscopic (ICD-10-PCS; principal; 2017-01-25 13:15)
PROC: BT1BZZZ Fluoroscopy of Bladder and Urethra (ICD-10-PCS; principal; 2017-01-25 13:15)
DX: N20.1 Calculus of ureter (principal); N12 Tubulo-interstitial nephritis, not specified as acute or chronic; I10 Essential (primary) hypertension; E11.9 Type 2 diabetes mellitus without complications; B96.5 Pseudomonas (aeruginosa) (mallei) (pseudomallei) as the cause of diseases classified elsewhere; N11.1 Chronic obstructive pyelonephritis; N20.0 Calculus of kidney; R00.8 Other abnormalities of heart beat; Z87.442 Personal history of urinary calculi
CPT/HCPCS: 71010; 74000; 74176; 74420; 80048; 80053; 81001; 82962; 83735; 84132; 85025; 87040; 87077; 87086; 87186; 93005; 96365; A9270-GY; C1758; C1763; C1769; C2617; J1170; J1450; J2250; J2405; J2543; J2710; J3010; J3260; J3370; Q9967

== ENCOUNTER 2017-04-24 11:03 | Inpatient (IN) | payer BC ==
[2017-04-22 14:30] LABS: BASOPHILS 0.7 %; BASOPHILS ABSOLUTE 0.08 10/3/uL (0.0-0.16); EOSINOPHILS 1.8 %; HEMATOCRIT 43.3 % (40.0-51.0); HEMOGLOBIN 14.5 g/dL (13.6-17.8); IMMATURE GRANULOCYTES 0.6 %; IMMATURE GRANULOCYTES ABSOLUTE 0.07 10/3/uL (0.0-0.11); LYMPHOCYTES 36.8 %; LYMPHOCYTES ABSOLUTE 4.07 10/3/uL (0.67-4.30); MANUAL DIFF NO %; MEAN CORPUS HGB CONC 33.5 g/dL (32.0-36.0); MEAN CORPUSCULAR HEMOGLOB 33.4 pg (26.0-34.0); MEAN CORPUSCULAR VOLUME 99.8 fL (80-100); MONOCYTES 6.6 %; MONOCYTES ABSOLUTE 0.73 10/3/uL (0.21-1.20); NEUTROPHILS 53.5 %; PLATELET COUNT 238 10/3/uL (150-400); RED CELL COUNT 4.34 10/6/uL (4.7-6.1); WHITE BLOOD CELLS 11.1 10/3/uL (4.5-10.5)
[2017-04-22 14:35] LABS: INTERNATIONAL NORMAL RATI 1.1 UNITS (-); PARTIAL THROMBO TIME 29.8 SEC (22.5-37.2); PROTIME (NOT ORD) 14.1 SEC (12.0-14.5)
[2017-04-22 15:09] LABS: BUN (BLOOD UREA NITROGEN) 26 MG/DL (6-23); CALCIUM, SERUM 8.8 MG/DL (8.5-10.4); CHLORIDE, SERUM 106 MMOL/L (96-112); CO2 (CARBON DIOXIDE) 29 MMOL/L (24-34); CREATININE 1.21 MG/DL (0.70-1.30); GFR AFRICAN AMERICAN 78 ML/MIN (>=60); GFR NON AFRICAN AMERICAN 67 ML/MIN (>=60); GLUCOSE, SERUM 142 MG/DL (60-99); POTASSIUM, SERUM 4.1 MMOL/L (3.5-5.3); SODIUM, SERUM 139 MMOL/L (135-148)
--- NOTE | ~2017-04-24 | OP ---
Record Of Operation [facility] [address] [place]. [address] NAME: RODY DAVIS : 62 STATUS : ADM Jesse PAT#: [id number] AGE: 56 ADM/REG DATE : 04/24/17 MR#: [id number] REPORT SERV DATE: 04/25/17 DICTATED BY: ZHANG ALAS III DATE: 04/25/17 REPORT STATUS : Draft TRANSCRIBED BY: MODL DATE: 04/25/17 DATE OF PROCEDURE: 04/25/2017 PROCEDURE: Right percutaneous nephrostolithotomy. PREOPERATIVE DIAGNOSIS: Right renal stone. POSTOPERATIVE DIAGNOSIS: Right renal stone. ANESTHESIA: General. PROCEDURE IN DETAIL: Following induction of adequate general anesthesia, the patient was placed in the supine position. A March catheter was placed. He was then placed carefully in the prone position. All pressure points padded and the neck angle managed by Anesthesia. He was then prepped and draped. The nephrostomy tube was included. I did a nephrostogram to identify the calyx of a major stone. A superstiff wire was placed down the indwelling ureteral catheter and a Quoc catheter was used to place 2 superstiff wires in the bladder. Incision was made. A balloon dilator was placed with the tip just at the level of the calyx. I could not see the stone, so it was blown up very slowly. After deflating the balloon, the scope was passed into the kidney and I immediately visualized the stone which broke up fairly easily. It then drifted down towards the ureteropelvic junction. I removed all of it with suction. Another stone came down from the upper pole which was hard to access from our entry and this was removed as well. The UPJ was wide open. The proximal ureter was somewhat tight with ureteral catheter and 2 wires. The patient had two accesses done and I did not think any significant stones could pass through. I then got the flexible scope and attempted to reach the upper pole. The angle was great enough and the renal pelvis was dilated and quite floppy and I could not examine all of the upper pole calices. Two of them were examined and there was no significant stone. The pigtail catheter and a 2nd access was removed as was the ureteral cath from the more posterior access. This really did not help in examining the remainder of the kidney. Nephrostogram showed no extravasation. At this point, I felt like I had done all I could do and a stent was placed with a 6.26 with a loop in the renal pelvis and a loop in the bladder. A 20-Palestinian nephrostomy tube was placed with the tip in the UPJ. Thus the catheter was secured with two 3-0 silk sutures. He tolerated the procedure well. Blood loss was on the order of 200 to 300 at best. There were no complications. OB/MODL Zhang Alas III, M.D. / [id number] CC: Record Of Operation [address] [address] NAME: RODY DAVIS : 62 STATUS : ADM Jesse PAT#: [id number] AGE: 56 ADM/REG DATE : 04/24/17 MR#: [id number] REPORT SERV DATE: 04/25/17 DICTATED BY: ZHANG ALAS III DATE: 04/25/17 REPORT STATUS : Draft TRANSCRIBED BY: MODL DATE: 04/25/17 Giulia Stallworth III, M.D.
--- NOTE | ~2017-04-24 | DS ---
Discharge Summary [facility] [address] [place]. [address] NAME: RODY DAVIS : 62 STATUS : DIS IN PAT#: [id number] AGE: 56 ADM/REG DATE : 04/24/17 MR#: [id number] REPORT SERV DATE: 05/30/17 DICTATED BY: ZHANG ALAS III DATE: 05/29/17 REPORT STATUS : Draft TRANSCRIBED BY: MODL DATE: 05/29/17 ADMISSION DATE: 04/24/2017 DISCHARGE DATE: 04/27/2017 DISCHARGE DIAGNOSIS: Right renal calculus. PROCEDURE: Right percutaneous nephrostolithotomy. HISTORY OF PRESENT ILLNESS: The patient has had multiple stone procedures, has a scarred right kidney and has persistent Pseudomonas infections. He came in for removal of a 1.8 cm stone and possibly a smaller calyceal stone the infection. His past medical history includes diabetes and hypertension. He is a former smoker. He has some degenerative joint disease. He has no known allergies. He was taken to the interventional suite and nephrostomy was placed on the . Procedure was done and a large stone was removed. The smaller stone was worked upon, but I could not completely clear the system. He did well postoperatively. He felt great. White count was 18,000, which was somewhat expected. The leukocytosis gradually resolved. He was discharged home by Dr. Tran with his nephrostomy tube removed and a stent in place. He will come to the office in two weeks for stent removal. OB/MODL Zhang Alas III, M.D. / [id number] CC: Giulia Stallworth III, M.D.
--- NOTE | ~2017-04-24 | HP ---
History And Physical [facility] [id number] [place]. [address] NAME: RODY DAVIS : 62 STATUS : DIS IN PAT#: [id number] AGE: 56 ADM/REG DATE : 04/24/17 MR#: [id number] REPORT SERV DATE: 05/29/17 DICTATED BY: ZHANG ALAS III DATE: 05/29/17 REPORT STATUS : Draft TRANSCRIBED BY: MODL DATE: 05/29/17 DATE OF ADMISSION: 04/24/2017 REASON FOR ADMISSION: Right renal calculi. HISTORY OF PRESENT ILLNESS: The patient is a 56-year-old white male, who has had extensive stone surgery, and approximately a year ago came in with undiagnosed diabetes, a fungal infection, and an obstructing right ureteral calculus. Subsequently, he has had several procedures to clear stones from both kidneys and he has a history of lithotripsies and ureteroscopy. Recently, he has had persistent Pseudomonas infections, has a persistent sizable stone in the right kidney. We tried to lateralize the infection and did not get back definitive cultures to lateralize; however, the patient does have a 1.8 cm stone in the mid to lower pole on the right and several smaller stones. He is admitted for percutaneous nephrostolithotomy. PAST MEDICAL HISTORY: Includes hypertension, diabetes, and history of renal stones. He has multiple procedures. He also has some degenerative joint disease. MEDICATIONS: Can be found on the chart. REVIEW OF SYSTEMS: Reveals no chest pain or shortness of breath. No fever, chills, or GI complaints. PHYSICAL EXAMINATION: GENERAL: He is alert and oriented. VITAL SIGNS: Within normal limits. HEENT: Unremarkable. NECK: Supple. LUNGS: Clear. HEART: Regular rate and rhythm without murmur or gallop. ABDOMEN: Soft and nontender. Bowel sounds are present and active with no masses. : External genitalia were normal. Rectal exam was deferred. EXTREMITIES: There is no pedal edema. IMPRESSION: Right ureteral calculus. We will do a percutaneous nephrostolithotomy. Risks and complications have been discussed with the patient. OB/MODL Zhang Alas III, M.D. / [id number] History And Physical [address] [place]. [place]. [address] NAME: RODY DAVIS : 62 STATUS : DIS IN PAT#: [id number] AGE: 56 ADM/REG DATE : 04/24/17 MR#: [id number] REPORT SERV DATE: 05/29/17 DICTATED BY: ZHANG ALAS III DATE: 05/29/17 REPORT STATUS : Draft TRANSCRIBED BY: MODL DATE: 05/29/17 CC: Giulia Stallworth III, M.D.
[~2017-04-24 11:03] MED LIST changes: +MEDROLPAK4 PO
[2017-04-24 11:41] LABS: HEMOGLOBIN 12.8 g/dL (13.6-17.8)
[2017-04-24 11:42] LABS: HEMATOCRIT 37.8 % (40.0-51.0); PLATELET COUNT 152 10/3/uL (150-400)
[2017-04-24] MEDS ORDERED: ADVIL PO (11:44)
[2017-04-24 11:48] LABS: INTERNATIONAL NORMAL RATI 1.3 UNITS (-); PARTIAL THROMBO TIME 31.1 SEC (22.5-37.2); PROTIME (NOT ORD) 16.5 SEC (12.0-14.5)
[2017-04-24 11:52] LABS: BUN (BLOOD UREA NITROGEN) 31 MG/DL (6-23); CALCIUM, SERUM 8.5 MG/DL (8.5-10.4); CHLORIDE, SERUM 109 MMOL/L (96-112); CO2 (CARBON DIOXIDE) 22 MMOL/L (24-34); CREATININE 1.69 MG/DL (0.70-1.30); GFR AFRICAN AMERICAN 52 ML/MIN (>=60); GFR NON AFRICAN AMERICAN 45 ML/MIN (>=60); GLUCOSE, SERUM 141 MG/DL (60-99); POTASSIUM, SERUM 4.3 MMOL/L (3.5-5.3); SODIUM, SERUM 139 MMOL/L (135-148)
[2017-04-25 06:43] LABS: BASOPHILS 0.4 %; BASOPHILS ABSOLUTE 0.05 10/3/uL (0.0-0.16); EOSINOPHILS 2.2 %; HEMATOCRIT 41.3 % (40.0-51.0); HEMOGLOBIN 13.7 g/dL (13.6-17.8); IMMATURE GRANULOCYTES 0.4 %; IMMATURE GRANULOCYTES ABSOLUTE 0.05 10/3/uL (0.0-0.11); LYMPHOCYTES 22.9 %; LYMPHOCYTES ABSOLUTE 3.07 10/3/uL (0.67-4.30); MEAN CORPUS HGB CONC 33.2 g/dL (32.0-36.0); MEAN CORPUSCULAR HEMOGLOB 33.3 pg (26.0-34.0); MEAN CORPUSCULAR VOLUME 100.2 fL (80-100); MEAN PLATELET VOLUME 10.4 fL (9.2-13.0); MONOCYTES 10.5 %; MONOCYTES ABSOLUTE 1.41 10/3/uL (0.21-1.20); NEUTROPHILS 63.6 %; NEUTROPHILS ABSOLUTE 8.51 10/3/uL (2.02-8.40); RBC DISTRIBUTION WIDTH 13.9 % (12.0-16.0); RED CELL COUNT 4.12 10/6/uL (4.7-6.1); WHITE BLOOD CELLS 13.4 10/3/uL (4.5-10.5)
[2017-04-25 06:44] LABS: MANUAL DIFF NO %; PLATELET COUNT 198 10/3/uL (150-400)
[2017-04-25 06:57] LABS: CALCIUM, SERUM 8.5 MG/DL (8.5-10.4); CHLORIDE, SERUM 106 MMOL/L (96-112); POTASSIUM, SERUM 3.8 MMOL/L (3.5-5.3); SODIUM, SERUM 138 MMOL/L (135-148)
[2017-04-25 06:58] LABS: BUN (BLOOD UREA NITROGEN) 21 MG/DL (6-23); CO2 (CARBON DIOXIDE) 27 MMOL/L (24-34); CREATININE 1.01 MG/DL (0.70-1.30); GFR AFRICAN AMERICAN 97 ML/MIN (>=60); GFR NON AFRICAN AMERICAN 83 ML/MIN (>=60); GLUCOSE, SERUM 100 MG/DL (60-99)
[2017-04-25 19:15] LABS: HEMOGLOBIN 14.3 g/dL (13.6-17.8)
[2017-04-26 07:08] LABS: BASOPHILS 0.1 %; BASOPHILS ABSOLUTE 0.02 10/3/uL (0.0-0.16); EOSINOPHILS 0.2 %; EOSINOPHILS ABSOLUTE 0.04 10/3/uL (0.0-0.53); HEMATOCRIT 41.3 % (40.0-51.0); IMMATURE GRANULOCYTES 0.4 %; IMMATURE GRANULOCYTES ABSOLUTE 0.08 10/3/uL (0.0-0.11); LYMPHOCYTES 21.7 %; LYMPHOCYTES ABSOLUTE 3.96 10/3/uL (0.67-4.30); MANUAL DIFF NO %; MEAN CORPUS HGB CONC 33.9 g/dL (32.0-36.0); MEAN CORPUSCULAR HEMOGLOB 34.1 pg (26.0-34.0); MEAN CORPUSCULAR VOLUME 100.7 fL (80-100); MEAN PLATELET VOLUME 10.4 fL (9.2-13.0); MONOCYTES 8.7 %; MONOCYTES ABSOLUTE 1.59 10/3/uL (0.21-1.20); NEUTROPHILS 68.9 %; PLATELET COUNT 203 10/3/uL (150-400); RBC DISTRIBUTION WIDTH 13.8 % (12.0-16.0); WHITE BLOOD CELLS 18.3 10/3/uL (4.5-10.5)
[2017-04-26 07:16] LABS: BUN (BLOOD UREA NITROGEN) 21 MG/DL (6-23); CALCIUM, SERUM 8.9 MG/DL (8.5-10.4); CHLORIDE, SERUM 104 MMOL/L (96-112); CO2 (CARBON DIOXIDE) 25 MMOL/L (24-34); CREATININE 1.03 MG/DL (0.70-1.30); GFR AFRICAN AMERICAN 94 ML/MIN (>=60); GFR NON AFRICAN AMERICAN 81 ML/MIN (>=60); POTASSIUM, SERUM 3.9 MMOL/L (3.5-5.3); SODIUM, SERUM 136 MMOL/L (135-148)
[2017-04-26 07:18] LABS: GLUCOSE, SERUM 137 MG/DL (60-99)
[2017-04-27 07:11] LABS: BASOPHILS 0.4 %; BASOPHILS ABSOLUTE 0.05 10/3/uL (0.0-0.16); EOSINOPHILS 2.5 %; EOSINOPHILS ABSOLUTE 0.34 10/3/uL (0.0-0.53); HEMATOCRIT 37.5 % (40.0-51.0); HEMOGLOBIN 12.7 g/dL (13.6-17.8); IMMATURE GRANULOCYTES 0.4 %; IMMATURE GRANULOCYTES ABSOLUTE 0.06 10/3/uL (0.0-0.11); LYMPHOCYTES 30.3 %; LYMPHOCYTES ABSOLUTE 4.09 10/3/uL (0.67-4.30); MEAN CORPUS HGB CONC 33.9 g/dL (32.0-36.0); MEAN CORPUSCULAR HEMOGLOB 33.9 pg (26.0-34.0); MEAN PLATELET VOLUME 10.4 fL (9.2-13.0); MONOCYTES 9.1 %; MONOCYTES ABSOLUTE 1.23 10/3/uL (0.21-1.20); NEUTROPHILS 57.3 %; NEUTROPHILS ABSOLUTE 7.72 10/3/uL (2.02-8.40); PLATELET COUNT 191 10/3/uL (150-400); RED CELL COUNT 3.75 10/6/uL (4.7-6.1); WHITE BLOOD CELLS 13.5 10/3/uL (4.5-10.5)
[2017-04-27 07:16] LABS: MANUAL DIFF NO %
[2017-04-27 07:24] LABS: BUN (BLOOD UREA NITROGEN) 21 MG/DL (6-23); CALCIUM, SERUM 8.4 MG/DL (8.5-10.4); CHLORIDE, SERUM 105 MMOL/L (96-112); CO2 (CARBON DIOXIDE) 26 MMOL/L (24-34); CREATININE 0.91 MG/DL (0.70-1.30); GFR AFRICAN AMERICAN 110 ML/MIN (>=60); GFR NON AFRICAN AMERICAN 95 ML/MIN (>=60); GLUCOSE, SERUM 93 MG/DL (60-99); POTASSIUM, SERUM 3.8 MMOL/L (3.5-5.3); SODIUM, SERUM 137 MMOL/L (135-148)
[2017-05-01 13:44] LABS: SOURCE OF STONE Right Kidney (()); STONE COMPOSITION TWO DNR (())
[2017-06-24] MEDS ORDERED: MOBIC15 MG PO (17:16)
[2017-06-27] MEDS ORDERED: ZOSYN375 IV (16:27)
== END 2017-04-27 17:19 | disposition home or self-care (01) | DRG 661 ==
LOC: SDC 11:03 → RADHOLD 11:12 → SDC/OF 14:25 → PACU 14:57 → 4SO 16:26
PROVIDERS: Radiology Vascular & Interventional Radiology; Urology
PROC: 0TC03ZZ Extirpation of Matter from Right Kidney, Percutaneous Approach (ICD-10-PCS; principal; 2017-04-24)
PROC: 0T9030Z Drainage of Right Kidney with Drainage Device, Percutaneous Approach (ICD-10-PCS; 2017-04-24)
DX: N20.0 Calculus of kidney (principal); I10 Essential (primary) hypertension; F17.210 Nicotine dependence, cigarettes, uncomplicated; E11.9 Type 2 diabetes mellitus without complications
CPT/HCPCS: 36415; 50432; 50695; 74000; 74150; 76001; 80048; 82365; 82962; 85014; 85018; 85025; 85049; 85610; 85730; 86850; 86900; 86901; 93005; A9270-GY; C1725; C1729; C1758; C1769; C1887; C1892; C1894; C2617; J0692; J1170; J1200; J2250; J2270; J2405; J2710; J3010; Q9967